=== PATIENT | female | born 1945 | race Two or more races ===

== ENCOUNTER 2022-11-05 13:48 | Emergency (ER) | payer MEDICARE, OTHER ==
[~2022-11-05] VITALS: Ht 154.9 cm; Wt 56.8 kg
[2022-11-05] MEDS ORDERED: METF-1211 PO (13:54)
[2022-11-05 14:19] VITALS: BP 100/63
== END 2022-11-05 14:50 | disposition home or self-care (01) ==
LOC: EMS 13:48
DX: S00.03XA Contusion of scalp, initial encounter (principal); E11.9 Type 2 diabetes mellitus without complications; Z91.010 Allergy to peanuts; Z91.018 Allergy to other foods; Z48.02 Encounter for removal of sutures; X58.XXXA Exposure to other specified factors, initial encounter; Y93.89 Activity, other specified; Y92.89 Other specified places as the place of occurrence of the external cause; Y99.8 Other external cause status
CPT/HCPCS: 99281; Z7502